=== PATIENT | female | born 1980 | race Two or more races ===

== ENCOUNTER 2021-07-21 17:01 | Emergency (ER) | payer OTHER, SELFPAY ==
[2021-07-21 17:27] VITALS: BP 107/72; PULSE 71; RESP 16; TEMP 36.5; O2SAT 100; BMI 23.6
[2021-07-21 20:50] VITALS: BP 136/54; PULSE 77; RESP 18; O2SAT 100
[2021-07-21 21:10] LABS: Basophils # 0.1 10^3/uL (0.0-0.1); Basophils % 0.8 %; Hematocrit 41.5 % (37.0-47.0); Hemoglobin 13.5 g/dL (11.5-15.3); Lymphocytes # 1.1 10^3/uL (0.8-4.8); Lymphocytes % 14.9 %; Mean Corpuscular HGB Conc 32.5 g/dL (30.0-36.0); Mean Corpuscular Volume 92.2 fl (81-99); Mean Platelet Volume 9.1 fL (7.4-10.4); Monocytes # 0.3 10^3/uL (0.2-0.9); Monocytes % 4.4 %; Neutrophils # 5.83 10^3/uL (1.8-7.7); Neutrophils % 79.8 %; Nucleated Red Blood Cells % 0 %; Platelet Count 344 10^3/cmm (130-400); Red Cell Distribution Width 12.4 % (12.1-15.1); White Blood Count 7.3 10^3/uL (4.0-10.0)
[2021-07-21 21:14] LABS: Add Urine Microscopic? NO; Charge for UA Resulting for Rev
[2021-07-21 21:16] LABS: Bilirubin Urine Neg (Negative); Blood Urine Neg (Negative); Glucose Urine UA Norm (Normal); Ketones Urine Negative (Negative); Leukocyte Esterase Urine Negative (Negative); Nitrate Urine Negative (Negative); Protein Urine Neg (Negative); Urine Appearance Clear (CLEAR); Urine Color Yellow (Yellow); Urobilinogen Urine Norm (Negative); pH Urine 6 (5-7)
[2021-07-21 21:22] LABS: HCG, Serum Qual Negative (Negative)
--- NOTE | 2021-07-21 21:22 | ED_ITS ---
HPI - Nausea/Vomiting/Diarrhea General: Chief complaint: Nausea/Vomiting/Diarrhea Stated complaint: N/V, Dizzy Time Seen by Provider: 07/21/21 20:55 Source: patient Mode of arrival: ambulatory Limitations: no limitations History of Present Illness: 40-year-old female states that over the last week she has been having extreme vertigo especially with any movement she states she is also had nausea and vomiting with her vertigo. States that today specially walking she has had extreme vertigo. States she also had ringing in her left ear. States she had seen Dr. Martinez in the past and been told she has had M?ni?re's has appointment no ENT because she wanted a second opinion. She has not been taking any meds at home denies any worsening improving factors. Associated nausea: Yes Associated symtoms: Reports nausea; Denies chest pain or dysuria Review of Systems Const: Denies: fever(s), chills, body aches or change in appetite Eyes: Denies: blurry vision or eye discomfort ENMT: Denies: throat pain or dental pain Card: Denies: chest pain Resp: Denies: dyspnea GI: Reports: nausea and vomiting : Denies: dysuria Musc: Denies: neck pain or back pain Skin/Breast: Denies: rash Neuro: Reports: vertigo Psych: Denies: depression Allan/Lymph: Denies: easy bruising All/Imm: Denies: urticaria PFSH ED PFSH: Medical History (Updated 07/21/21 @ 22:09 by Stephanie Garza MD) Vertigo Social History (Updated 07/21/21 @ 21:22 by Stephanie Garza MD) Substance/Drug Use: never Physical Exam Const: COMMON NORMALS: no acute distress, patient oriented x3 and healthy appearing HENMT: COMMON NORMALS: normocephalic, atraumatic and TM's normal bilaterally HEAD & SCALP: normocephalic and atraumatic TYMPANIC MEMBRANE: TM's normal bilaterally Eye: COMMON NORMALS: Equal, round and reactive pupils present and EOMs intact bilaterally PUPIL: Yes Equal, round and reactive pupils present Neck/C-Spine: COMMON NORMALS: full ROM and supple Chest: COMMONS NORMALS: normal inspection of the chest and normal palpation of entire chest wall Resp: COMMON NORMALS: normal respiratory effort, No retractions, No use of accessory muscles and clear to auscultation bilaterally AUSCULTATION: clear to auscultation bilaterally Cardio: COMMON NORMALS: regular rate, regular rhythm and No murmurs present (Cardio) RATE: regular rate RHYTHM: regular rhythm GI: COMMON NORMALS: Normal to inspection, nondistended, normoactive bowel sounds present, Soft to palpation, non-tender and no masses PALPATION: Yes Soft to palpation Extremity: COMMON NORMALS: normal to inspection and full ROM Neuro: COMMON NORMALS: patient oriented x3, moves all extremities and no focal motor deficits Psych: COMMON NORMALS: mental status grossly normal, Normal thought process present and cooperative THOUGHT PROCESS: Normal thought process present Skin: COMMON NORMALS: no rashes or lesions noted and no wounds GENERAL SKIN EXAM: no rashes or lesions noted Course Vital Signs: Vital signs: Vital Signs Temperature 97.7 F 07/21/21 17:27 Pulse Rate 77 07/21/21 20:50 Respiratory Rate 18 07/21/21 20:50 Blood Pressure 136/54 07/21/21 20:50 Pulse Oximetry 100 07/21/21 20:50 MDM - Nausea/Vomiting/Diarrhea Medical Decision Making Patient presents here with vertigo along with ringing in her left ear is likely has M?ni?re's she has been diagnosed in the past she has no signs of a stroke will place her on meclizine and Zofran at home. Meclizine here completely resolve her symptoms she is able to ambulate the halls without any vertigo. She is stable for discharge follow-up ENT as scheduled and return if worsening. Lab Data : 07/21/21 21:00 07/21/21 21:23 Laboratory Results WBC 7.3 10^3/uL (4.0-10.0) 07/21/21 21:00 RBC 4.50 10^6/uL (4.1-5.3) 07/21/21 21:00 Hgb 13.5 g/dL (11.5-15.3) 07/21/21 21:00 Hct 41.5 % (37.0-47.0) 07/21/21 21:00 MCV 92.2 fl (81-99) 07/21/21 21:00 MCH 30.0 pg (28.0-34.0) 07/21/21 21:00 MCHC 32.5 g/dL (30.0-36.0) 07/21/21 21:00 RDW 12.4 % (12.1-15.1) 07/21/21 21:00 Plt Count 344 10^3/cmm (130-400) 07/21/21 21:00 MPV 9.1 fL (7.4-10.4) 07/21/21 21:00 Neut % (Auto) 79.8 % 07/21/21 21:00 Lymph % (Auto) 14.9 % 07/21/21 21:00 [place] % (Auto) 4.4 % 07/21/21 21:00 Eos % (Auto) 0.0 % 07/21/21 21:00 Baso % (Auto) 0.8 % 07/21/21 21:00 Neut # (Auto) 5.83 10^3/uL (1.8-7.7) 07/21/21 21:00 Lymph # (Auto) 1.1 10^3/uL (0.8-4.8) 07/21/21 21:00 [place] # (Auto) 0.3 10^3/uL (0.2-0.9) 07/21/21 21:00 Eos # (Auto) 0.0 10^3/uL (0.0-0.8) 07/21/21 21:00 Baso # (Auto) 0.1 10^3/uL (0.0-0.1) 07/21/21 21:00 Nucleated RBC % (auto) 0 % 07/21/21 21:00 Nucleated RBCs # 0.0 /100WBC 07/21/21 21:00 Sodium 133 mmol/L (136-145) L 07/21/21 21: Potassium 3.8 mmol/L (3.5-5.1) 07/21/21: Chloride 102 mmol/L (98-107) 07/21/21: Carbon Dioxide 20 mmol/L (22-29) L 07/21/21 21: Anion Gap 14.8 (5-19) 07/21/21 21: BUN 12 mg/dL (6-20) 07/21/21: Creatinine 0.7 mg/dL (0.5-0.9) 07/21/21: GFR Calculation 92.7 mL/min (90-130) 07/21/21: Glucose 100 mg/dL (65-115) 07/21/21: Calculated Osmolality 276 mOsm/kg (285-295) L 07/21/21: Calcium 10.0 mg/dL (8.5-10.5) 07/21/21: Total Bilirubin 0.3 mg/dL (0.15-1.2) 07/21/21: AST 18 U/L (0-32) 07/21/21: ALT 12 U/L (0-33) 07/21/21: Alkaline Phosphatase 60 IU/L (35-105) 07/21/21: Total Protein 6.9 g/dL (6.6-8.7) 07/21/21: Albumin 4.6 g/dL (3.5-5.2) 07/21/21: Globulin 2.3 g/dL (1.3-4.6) 07/21/21: Lipase 39 U/L (13-60) 07/21/21 21: HCG, Qual Negative (Negative) 07/21/21 21:00 Urine Color Yellow (Yellow) 07/21/21 21:10 Urine Appearance Clear (CLEAR) 07/21/21 21:10 Urine pH 6 (5-7) 07/21/21 21:10 Ur Specific [place] 1.010 (1.005-1.030) 07/21/21 21:10 Urine Protein Neg (Negative) 07/21/21 21:10 Urine Glucose (UA) Norm (Normal) 07/21/21 21:10 Urine Ketones Negative (Negative) 07/21/21 21:10 Urine Blood Neg (Negative) 07/21/21 21:10 Urine Nitrate Negative (Negative) 07/21/21 21:10 Urine Bilirubin Neg (Negative) 07/21/21 21:10 Urine Urobilinogen Norm mg/dL (Negative) 07/21/21 21:10 Ur Leukocyte Esterase Negative (Negative) 07/21/21 21:10 Discharge Plan Discharge Patient Disposition: Home Clinical Impression: Vertigo, Dizziness Prescriptions: New Zofran 4 mg tablet 4 mg PO QID PRN (Reason: nausea and vomiting) Qty: 14 0RF meclizine 50 mg tablet 50 mg PO BID PRN (Reason: dizziness) Qty: 20 0RF Discharge Orders: Discharge ED (Routine); Ordered 07/21/21 Ordered By: Stephanie Garza Discharge Diet: Advance as tolerated Discharge Activity: Resume usual activity Patient Instructions: Vertigo (ED) Coding Level of Care Code ED [employer] for Breanne Fwjennifer Exam Comprehensive
[2021-07-21] MEDS: sodium chloride 0.9% 1,000 ML 999 ML IV (21:40)
[2021-07-21] MEDS: ondansetron 2 mg/ML SDV 2 mL 4 MG IVP (21:40)
[2021-07-21] MEDS: meclizine 25 mg tablet 50 MG PO (21:40)
[2021-07-21 22:01] LABS: Alanine Aminotransferase 12 U/L (0-33); Albumin Level 4.6 g/dL (3.5-5.2); Alkaline Phosphatase 60 IU/L (35-105); Anion Gap 14.8 (5-19); Aspartate Amino Transferase 18 U/L (0-32); Blood Urea Nitrogen 12 mg/dL (6-20); Carbon Dioxide 20 mmol/L (22-29); Chloride 102 mmol/L (98-107); Creatinine Clr Calc Pharmacy 97.5787; Globulin 2.3 g/dL (1.3-4.6); Glomerular Filtration Rate 92.7 mL/min (90-130); Glucose 100 mg/dL (65-115); Lipase 39 U/L (13-60); Osmolality Calculated 276 mOsm/kg (285-295); Potassium 3.8 mmol/L (3.5-5.1); Sodium 133 mmol/L (136-145); Total Bilirubin 0.3 mg/dL (0.15-1.2); Total Protein 6.9 g/dL (6.6-8.7)
[2021-07-21 22:16] VITALS: BP 115/70; PULSE 69; RESP 14; TEMP 36.8; O2SAT 99
== END 2021-07-21 22:31 | disposition home or self-care (01) ==
PROVIDERS: Emergency Provider Emergency Medicine
DX: R42 Dizziness and giddiness (principal)
CPT/HCPCS: 80053; 81003; 83690; 84703; 85025; 96361; 96374; 99284; J2405; J7030; J8597

== ENCOUNTER 2021-08-30 21:07 | Emergency (ER) | payer OTHER, SELFPAY ==
[2021-08-30 21:13] VITALS: BP 136/85; PULSE 90; RESP 22; TEMP 36.7; O2SAT 100; BMI 24.3
[2021-08-30] MEDS: diphenhydrAMINE 50 mg/mL SDV 1mL IVP (23:48)
[2021-08-30] MEDS: famotidine 20 mg/2 mL INJ 40 MG IVP (23:50)
[2021-08-30] MEDS: dexamethasone 10 mg/mL INJ IVP (23:54)
--- NOTE | 2021-08-31 00:20 | XRR_ITS ---
PROCEDURE INFORMATION: Exam: XR Chest Exam date and time: 08/30/2021 11:27 PM Age: 41 years old Clinical indication: Shortness of breath; Patient HX: C/O SOB. TECHNIQUE: Imaging protocol: XR of the chest. Views: 1 view. COMPARISON: No relevant prior studies available. FINDINGS: Lungs: Unremarkable. No consolidation. Pleural spaces: Unremarkable. No pleural effusion. No pneumothorax. Heart/Mediastinum: Unremarkable. No cardiomegaly. Bones/joints: Unremarkable. XR/XR chest 1V portable [id number] IMPRESSION: No acute findings.
--- NOTE | 2021-08-31 00:35 | ED_ITS ---
HPI - Allergic Reaction General: Chief complaint: Allergic Reaction Stated complaint: Allergic Reaction Time Seen by Provider: 08/30/21 23:06 Source: patient Mode of arrival: ambulatory Limitations: no limitations History of Present Illness: HPI narrative: 41-year-old female who was working out in the yard 3 to 4 days ago got a rash after she states. She was seen at urgent care diagnosed with a contact dermatitis started on prednisone but states that its been worsening. Does have the appearance of likely poison jil or poison sumac rashes to her neck slightly on her face mainly on her bilateral arms some to her trunk. States is very pruritic in nature. Denies any worsening proving factor states that she seen again yesterday and they started on Bactrim because of the worsening but states that she took a dose of Bactrim and states she felt slightly short of breath. 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 Social History Smoking and tobacco status: never smoked Physical Exam Const: COMMON NORMALS: no acute distress, patient oriented x3 and healthy appearing HENMT: COMMON NORMALS: normocephalic and atraumatic HEAD & SCALP: normocephalic and atraumatic Eye: COMMON NORMALS: Equal, round and reactive pupils present and EOMs intact bilaterally PUPIL: Yes Equal, round and reactive pupils present Neck/C-Spine: COMMON NORMALS: full ROM and supple Chest: COMMONS NORMALS: normal inspection of the chest and normal palpation of entire chest wall Resp: COMMON NORMALS: normal respiratory effort, No retractions, No use of accessory muscles and clear to auscultation bilaterally AUSCULTATION: clear to auscultation bilaterally Cardio: COMMON NORMALS: regular rate, regular rhythm and No murmurs present (Cardio) RATE: regular rate RHYTHM: regular rhythm GI: COMMON NORMALS: Normal to inspection, nondistended, normoactive bowel sounds present, Soft to palpation, non-tender and no masses PALPATION: Yes Soft to palpation Extremity: COMMON NORMALS: normal to inspection and full ROM Neuro: COMMON NORMALS: patient oriented x3, moves all extremities and no focal motor deficits Psych: COMMON NORMALS: mental status grossly normal, Normal thought process present and cooperative THOUGHT PROCESS: Normal thought process present Skin: COMMON NORMALS: no wounds NARRATIVE SKIN EXAM: Contact dermatitis noticed to neck chest back and arms worse on the arms appearance of likely poison oak or poison sumac Course Vital Signs: Vital signs: Vital Signs Temperature 98.0 F 08/30/21 21:13 Pulse Rate 90 08/30/21 21:13 Respiratory Rate 22 H 08/30/21 21:13 Blood Pressure 136/85 08/30/21 21:13 Pulse Oximetry 100 08/30/21 21:13 MDM - Allergic Reaction Medical Decision Making Patient presents here with contact dermatitis likely poison jil. She feels much improved after IV Decadron Pepcid and Benadryl. Informed her she continue to take Benadryl and Pepcid at home. Urgent care did prescribe her 40 mg of prednisone daily for 5 days she is on day 4. I informed her to finish that prescription and will add on a taper of 20 mg for 3 days and then 10 mg of 3 days after she finishes her initial prednisone dose. She has no signs of anaphylaxis no signs of secondary cellulitis I informed her to stop taking the Bactrim unless it worsens. She is to return if worsening she understands agrees to plan. Discharge Plan Discharge Patient Disposition: Home Clinical Impression: Contact dermatitis Condition: Stable Prescriptions: New prednisone 10 mg tablet 10 mg PO DAILY Qty: 9 0RF Rx Instructions: take 2 tabs daily for 3 days then one tab daily for the next 3 days No Action methylphenidate HCl [Concerta] 36 mg tablet extended release 24hr 36 mg PO DAILY 0RF hydroxyzine HCl 25 mg tablet 25 mg PO TID [id number] prednisone 20 mg tablet 40 mg PO DAILY 5 Days Qty: 10 0RF sulfamethoxazole-trimethoprim [Bactrim DS] 800-160 mg tablet 1 tab PO BID 7 Days Qty: 14 0RF triamcinolone acetonide 0.1 % cream 1 applic topical BID 7 Days Qty: 80 0RF Discharge Orders: Discharge ED (Routine); Ordered 08/31/21 Ordered By: Stephanie Garza Discharge Diet: Advance as tolerated Discharge Activity: Resume usual activity Patient Instructions: Contact Dermatitis (ED), Poison Jil (ED) Coding Level of Care Code ED Management Professional for Chg Fwd Exam Comprehensive
[2021-08-31 01:01] VITALS: BP 105/69; PULSE 80; RESP 16; O2SAT 98
== END 2021-08-31 01:02 | disposition home or self-care (01) ==
PROVIDERS: Emergency Provider Emergency Medicine
DX: L25.9 Unspecified contact dermatitis, unspecified cause (principal)
CPT/HCPCS: 71045; 96374; 96375; 99283; J1100; J1200; J3490